=== PATIENT | female | born 1965 | race African-American/Black ===

== ENCOUNTER 2024-07-20 06:47 | Emergency (ER) | payer OTHER ==
[~2024-07-20] VITALS: Ht 165.1 cm; Wt 72.6 kg
[2024-07-20] MEDS ORDERED: ACETAMINOPHEN 325 MG TABLET ONE (07:38)
[2024-07-20] MEDS ORDERED: CYCLOBENZAPRINE 10 MG TABLET ONE (07:39)
[2024-07-20] MEDS ORDERED: KETOROLAC TROMETHAMINE 15 MG/ML VIAL ONE (07:39)
[2024-07-20] MEDS: CYCLOBENZAPRINE 10 MG TABLET PO ONE (07:42)
[2024-07-20] MEDS: KETOROLAC TROMETHAMINE 15 MG/ML VIAL IM ONE (07:42)
[2024-07-20] MEDS: ACETAMINOPHEN 325 MG TABLET PO ONE (07:43)
[2024-07-20] MEDS ORDERED: CYCL5TAB PO (08:47)
[2024-07-20] MEDS ORDERED: LIDO30AD10 TP (08:47)
[2024-07-20] MEDS ORDERED: IBUP-1955 PO (08:47)
[2024-07-20 08:57] VITALS: BP 128/71; TEMP 98.1; O2SAT 97
== END 2024-07-20 08:58 | disposition home or self-care (01) ==
LOC: ER 06:50
DX: S16.1XXA Strain of muscle, fascia and tendon at neck level, initial encounter (principal); S46.912A Strain of unspecified muscle, fascia and tendon at shoulder and upper arm level, left arm, initial encounter; R07.89 Other chest pain; J45.909 Unspecified asthma, uncomplicated; V44.5XXA Car driver injured in collision with heavy transport vehicle or bus in traffic accident, initial encounter; Y93.89 Activity, other specified; Y92.415 Exit ramp or entrance ramp of street or highway as the place of occurrence of the external cause; Y99.8 Other external cause status
CPT/HCPCS: 99284; 96372; 71100; 73030; J1885